=== PATIENT | female | born 1985 | race Caucasian/White ===

== ENCOUNTER 2023-04-19 06:34 | Outpatient (OUT) | payer OTHER, SELFPAY ==
[2023-04-19 07:11] LABS: Basophils Percent Auto 0.4 % (0.2-2.0); Eosinophils Absolute Auto 0.1 10^3/uL (0.0-0.7); Eosinophils Percent Auto 1.1 % (0.9-7.0); Hematocrit 42.7 % (36.0-48.0); Hemoglobin 13.6 g/dL (12.0-16.0); Immature Granulocytes Abs Auto 0.03 10^3/uL (0.00-0.03); Immature Granulocytes Pct Auto 0.3 % (0.0-0.5); Lymphocytes Absolute Auto 2.9 10^3/uL (1.2-3.8); Lymphocytes Percent Auto 31.5 % (20.5-60.0); Mean Corpuscular HGB Conc 31.9 g/dL (29.9-35.2); Mean Corpuscular Hemoglobin 27.8 pg (26.7-34.0); Mean Corpuscular Volume 87.1 fL (81.0-99.0); Mean Platelet Volume 9.4 fL (9.5-13.5); Monocytes Absolute Auto 0.6 10^3/uL (0.3-0.8); Monocytes Percent Auto 6.2 % (1.7-12.0); Neutrophils Absolute Auto 5.5 10^3/uL (1.4-6.5); Neutrophils Percent Auto 60.5 % (43.0-75.0); Platelet Count 259 10^3/uL (150-450); Red Cell Distribution Width 13.1 % (11.0-15.0); White Blood Count 9.1 10^3/uL (4.0-11.0)
[2023-04-19 08:05] LABS: Free T3 1.54 pg/mL (2.18-3.98); Thyroid Stimulating Hormone 2.066 uIU/mL (0.358-3.740)
[2023-04-19 11:55] LABS: Free T4 0.64 ng/dL (0.76-1.46)
[2023-04-20 04:07] LABS: FSH 3.8 mIU/mL (.); Luteinizing Hormone(LH) 8.9 mIU/mL (.)
[2023-04-20 15:09] LABS: Thyroglobulin Antibody <1.0 IU/mL (0.0-0.9); Thyroid Peroxidase (TPO) Ab 11 IU/mL (0-34)
[2023-04-25 04:07] LABS: Reverse T3, Serum 12.8 ng/dL (9.2-24.1)
[2023-04-26 00:07] LABS: Estrogens, Total 317 pg/mL (.)
== END 2023-04-19 06:35 | disposition home or self-care (01) ==
LOC: LAB 06:38
PROVIDERS: PCP Family Medicine; Visit Provider Family Medicine
DX: E03.9 Hypothyroidism, unspecified (principal); R53.83 Other fatigue
CPT/HCPCS: 36415; 82306; 82607; 82672; 82728; 83001; 83002; 84439; 84443; 84481; 84482; 85025; 86376; 86800

== ENCOUNTER 2024-02-02 09:32 | Outpatient (OUT) | payer OTHER, SELFPAY ==
--- OUTSIDE RECORDS SUMMARY | 2024-02-02 09:36 | XMS_ITS | CCD ---
Author Organization [facility] Care Team Providers Care Commercial Lender Name Role Phone Sarah Lau Unavailable OFELIA, DR VORA Admitting Unavailable PRINTY, DR VORA Attending Unavailable LOPEZ, DR ELY Chu Primary Care Unavailable PRINTY, DR VORA Consulting Unavailable LOPEZ, DR ELY Chu Admitting Unavailable LOPEZ, DR ELY Chu Attending Unavailable LOPEZ, DR ELY Chu Primary Care Unavailable LOPEZ, DR ELY Chu Consulting Unavailable LOPEZ, DR ELY Chu Admitting Unavailable LOPEZ, DR ELY Chu Attending Unavailable LOPEZ, DR ELY Chu Primary Care Unavailable LOPEZ, DR ELY Chu Consulting Unavailable PRINTY, DR VORA Admitting Unavailable PRINTY, DR VORA Attending Unavailable LOPEZ, DR ELY Chu Primary Care Unavailable PRINTY, DR VORA Consulting Unavailable MD Ely Lopez Primary Care Provider [phone] MD Vielka Gonzalez Attending Provider [phone] MD Vielka Gonzalez Admit Provider MD Coby Chavez Attending Provider Coby Chavez Admitting Unavailable Coby Chavez Attending Unavailable Ely Lopez Primary Care Unavailable Vielka Gnozalez Admitting Unavailable Vielka Gonzalez Attending Unavailable Ely Lopez Primary Care Unavailable Vielka Gonzalez Admitting Unavailable Vielka Gonzalez Attending Unavailable Ely Lopez Primary Care Unavailable Ely Lopez Unavailable Ely Lopez MD Primary Care Provider BRENDA DINH Attending UnavailBRENDA Dodson Attending UnavailBRENDA Dodson Attending UnavailBRENDA Dodson Attending UnavailBRENDA Dodson Attending Unavailabl BRENDA Pryor Attending BRENDA Acuna Attending Félix chu Allergies Allergy Classification Reported Allergen(s) Allergy Type Date of Onset Reaction(s) Facility (2 sources) patient allergy list reviewed by nurse or physicia Propensity to adverse reactions 9 Comment:Done [facility] Other (2 sources) Allergies Reconciled Propensity to adverse reactions Unknown [facility] Other Medications Current Medications Medication Drug Class(es) Dates Sig (Normalized) Sig (Original) Thyroid (Pork) (Skytop Thyroid) 120 mg tablet (2 sources) Start: 05-25-2023 take 1 tablet by mouth once daily Thyroid (Pork) (Skytop Thyroid) 120 mg tablet Active 120 MG PO Daily May 24, 2023 11:00pm Start: 05-25-2023 take 1 tablet by mouth once da kaitlynn Thyroid (Pork) (Skytop Thyroid) 120 mg tablet Active 120 MG PO Daily May 25, 2023 12:00am thyroid (detention) 180 mg oral tablet (10 sources) Start: 05-25-2023 End: 01-02-2024 take 1 tablet by mouth once daily Thyroid (Pork) (Skytop Thyroid) 180 mg tablet Active 180 MG PO Daily January 02, 2024 3:00pm Start: 02-24-2022 End: 05-25-2023 take 1 tablet by mouth once daily Thyroid (Pork) (Skytop Thyroid) 120 mg Tablet Discontinued 120 MG PO Daily February 24, 2022 12:00am May 25, 2023 8:12am take 1 tablet by alen every other day Skytop Thyroid 180 MG 1 tablet on an empty stomach Orally every other day for 30 days Pt will alternate the 120mg and the 180mg doses. Active Completed/Discontinued Medications Medication Drug Class(es) Dates Sig (Normalized) Sig (Original) amoxicillin 875 mg oral tablet (3 sources) Penicillin-class Antibacterial Start: 04-26-2020 take 1 tablet by mouth every twelve hours Amoxicillin 875 MG 1 tablet Orally every 12 hrs for 7 days Apr, Not-Taking/PRN azithromycin 250 mg oral tablet (2 sources) Macrolide Antimicrobial Start: 05-25-2023 End: 01-29-2024 take 2 tablets by mouth once daily, then take 1 tablet by mouth once daily Azithromycin 250 mg tablet Discontinued 250 MG PO daily 6 May 24, 2023 11:00pm January 29, 2024 3:39pm Take 2 today and then 1 each additional day for the next 4 days. docusate sodium 100 mg oral capsule (9 sources) Start: 02-26-2022 End: 05-25-2023 take 1 capsule by mouth once daily Docusate Sodium (Colace) 100 mg capsule Discontinued 100 MG PO Daily February 26, 2022 12:00am May 25, 2023 8:12am Start: 04-25-2019 End: 02-24-2022 take 1 capsule by mouth once daily Docusate Sodium (Colace) 100 mg capsule Discontinued 100 MG PO Daily April 25, 2019 12:00am February 24, 2022 6:24am ferrous sulfate 325 mg oral tablet (4 sources) Start: 02-26-2022 End: 05-25-2023 take 1 tablet by mouth once daily Ferrous Sulfate 325 mg (65 mg iron) tablet Discontinued 325 MG PO Daily February 26, 2022 12:00am May 25, 2023 8:12am ibuprofen 600 mg oral tablet (9 sources) Nonsteroidal Anti-inflammatory Drug Start: 02-26-2022 End: 05-25-2023 take 4 tablets by mouth every twenty-four hours for pain Ibuprofen 600 mg tablet Discontinued 600 MG PO Every 6 hours as needed for pain February 26, 2022 12:00am May 25, 2023 8:12am do not exceed 4 doses in a 24 hour period Start: 04-25-2019 End: 02-24-2022 take 1 tablet by mouth every six hours as needed for pain Ibuprofen 800 mg tablet Discontinued 800 MG PO Q6H as needed for pain April 25, 2019 12:00am February 24, 2022 6:24am traMADol hydrochloride 50 mg oral tablet (5 sources) Opioid Agonist Start: 04-25-2019 End: 02-24-2022 take 1 tablet by mouth every six hours as needed for pain Tramadol (Ultram) 50 mg tablet Discontinued 50 MG PO Q6H as needed for pain 8 April 25, 2019 12:00am February 24, 2022 6:24am Problems Active Problems Problem Classification Problem Date Documented Date Episodic/Chronic Anxiety disorders (6 sources) Generalized anxiety disorder; Translations: [Generalized anxiety disorder] Onset: 08-23-2022 08-23-2022 Chronic Asthma (2 sources) Asthma; Translations: [Unspecified asthma, uncomplicated] 05-25-2023 Chronic Diabetes or abnormal glucose tolerance complicating ; childbirth; or the puerperium (4 sources) Abnormal glucose complicating ; Translations: [ABNORMAL GLUCOSE COMP ] Onset: 12-16-2021 Episodic Malaise and fatigue (1 source) Other fatigue Episodic Other non-traumatic joint disorders (2 sources) Arthralgia of the ankle and/or foot; Translations: [Pain in left ankle and joints of left foot] Episodic Other nutritional; endocrine; and metabolic disorders (2 sources) Obese class I; Translations: [Body mass index 33.0-33.9, adult] Onset: 05-09-2018 Chronic Other nutritional; endocrine; and metabolic disorders (3 sources) Overweight; Translations: [Overweight (BMI 25.0-29.9)] Episodic Other nutritional; endocrine; and metabolic disorders (2 sources) Body mass index 25-29 - overweight; Translations: [Overweight] 05-25-2023 Episodic Other and delivery including normal (4 sources) Encounter for supervision of normal , unspecified, second trimester; Translations: [ENC SUP NORMAL PREG UNS SECOND TRI] Onset: 12-14-2021 Episodic Other screening for suspected conditions (not mental disorders or infectious disease) (1 source) Encounter for other specified screening; Translations: [ENCTR OTH SPEC SCREENING] Onset: 12-16-2021 Episodic Other upper respiratory infections (4 sources) Acute upper respiratory infection, unspecified; Translations: [Acute pharyngitis] Onset: 01-22-2021 Resolved: 01-22-2021 Episodic Sprains and strains (2 sources) Sprain of left ankle; Translations: [Sprain of other ligament of left ankle, subsequent encounter] Episodic Thyroid disorders (11 sources) Kirsten thyroiditis; 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 Unclassified (3 sources) CONTACT W/AND (SUSP) EXPOS COVID-19; Translations: [CONTACT W/AND (SUSP) EXPOS COVID-19] Onset: 01-01-2021 Unclassified (1 source) Maternal care for low transverse scar from previous delivery; Translations: [Maternal care for low transverse scar from previous delivery] Onset: 02-24-2022 Unclassified (1 source) Encounter for screening for Streptococcus B; Translations: [Encounter for screening for Streptococcus B] Onset: 02-09-2022 Viral infection (1 source) COVID-19; Translations: [COVID-19] Onset: 02-14-2021 Past or Other Problems Problem Classification Problem Date Documented Da te Episodic/Chronic Immunizations and screening for infectious disease (1 source) Contact with and (suspected) exposure to other viral communicable diseases Onset: 01-22-2021 Resolved: 01-22-2021 Episodic Other skin disorders (2 sources) Folliculitis; Translations: [Follicular disorder, unspecified] Onset: 12-15-2016 Episodic Other skin disorders (2 sources) Disorder of skin; Translations: [Follicular disorder, unspecified] Onset: 12-15-2016 05-25-2023 Episodic Unclassified (1 source) CONTACT W/AND (SUSP) EXPOS COVID-19; Translations: [CONTACT W/AND (SUSP) EXPOS COVID-19] Onset: 02-09-2021 Results Test Name Value Interpretation Reference Range Facility No Panel InformationOrdered By: Ene Cheney on 05-25-2023 Quick Strep (POC) [facility] No Panel Informationon 04-19 Follicle Stimulating Hormone 3.8 mIU/mL . [facility] Comment on above: Adult Female Range F ollicular phase 3.5 - 12.5 Ovulation phase 4.7 - 21.5 Luteal phase 1.7 - 7.7 Postmenopausal 25.8 - 134.8Performed at: [facility] [employer] [id number] Director: Neil Fairchild PhD, Phone: [phone] Reverse Triiodothyronine (T3) 12.8 ng/dL 9.2-24.1 [facility] Comment on above: This test was develo ped and its performance characteristicsdetermined by [employer]. It has not been cleared orapproved by the Food and Drug Administration.Performed at: [address] [id number] Director: Marina Castro MD, Phone: [phone] This test was develo ped and its performance characteristicsdetermined by [employer]. It has not been cleared orapproved by the Food and Drug Administration.Performed at: [place] [address] [id number] Director: Marina Castro MD, Phone: [phone] Serum or plasma lutropin yahir surement (units/volume)on 04-19-2023 Lutropin Qn 8.9 m[IU]/mL . [facility] Comment on above: Adult Female Range F ollicular phase 2.4 - 12.6 Ovulation phase 14.0 - 95.6 Luteal phase 1.0 - 11.4 Postmenopausal 7.7 - 58.5 TPO Ab Qnon 04-19-2023 Thyroid Peroxidase Antibodies 11 [IU]/mL 0-34 [facility] Thyroglobulin [Mass/Vol]on 0 04-19-2023 Thyroglobulin Level <1.0 [IU]/mL 0.0-0.9 [facility] Comment on above: Thyroglobulin Antibo dy measured by Fiorella CoulterMethodologyPerformed at: [employer] [address] [id number] Director: Neil Fairchild PhD, Phone: [phone] Thyroglobulin Antibo dy measured by PixonicMethodologyPerformed at: [employer] [id number] Director: Neil Fairchild PhD, Phone: [phone] Total estrogen measurementon 04-19-2023 Estrogen [Mass/Vol] 317 pg/mL . [facility] Comment on above: Prepubertal < 40 Fem minerva Cycle: 1-10 Days 16 - 328 11-20 Days 34 - 501 21-30 Days 48 - 350 Post-Menopausal 40 - 244Performed at: [place] [address] [id number] Director: Marina Castro MD, Phone: [phone] Antibody Identificationon Antibody Identification LC Normal [facility] Comment on above: Result Comment: Anti -c by previous ID at [facility]. See scanned report. Anti-c confirmed by [facility] blood bank upon additional testing on 02/25/22. Unable to rule out Anti-E and Anti-S. Give c, E, S negative packed red blood cells if transfusion is necessary. Pasquale observed during testing. --- 02/26/22 0938 --- AB ID previously reported as: Cold Ab, Anti-c Anti-c by previous ID at [facility]. See scanned report. [facility] Basophils Auto (Bld) [#/Vol] Ordered By: VIELKA GONZALEZ on 02-25-2022 Basophils (Bld) [#/Vol] 0.0 10*3/uL 0.0-0.2 [facility] Basophils/100 WBC Auto (Bld) Ordered By: VIELKA GONZALEZ on 02-25-2022 Basophils/100 WBC (Bld) 0.1 % . [facility] Complete Blood Count Auto Di ffon 02-25-2022 Basophils (Bld) [#/Vol] 0.0 10*3/uL Normal 0.0-0.2 [facility] Comment on above: Order Comment: DRAW LABS AFTER MORNING RUN IS COMPLETE Result Comment: PERF ORMED BY: [place] [address] PATHOLOGIST SENIOR ARCHITECT ROSS NGUYEN M.D. Performed By: #### C BC #### [address] Basophils/100 WBC (Bld) 0.1 % Normal . [facility] Comment on above: Order Comment: DRAW LABS AFTER MORNING RUN IS COMPLETE Performed By: #### C BC #### [facility] [address] Eosinophils (Bld) [#/Vol] 0.0 10*3/uL Normal 0.0-0.45 [facility] Comment on above: Order Comment: DRAW LABS AFTER MORNING RUN IS COMPLETE Performed By: #### C BC #### [address] Eosinophils/100 WBC (Bld) 0.2 % Normal . [facility] Comment on above: Order Comment: DRAW LABS AFTER MORNING RUN IS COMPLETE Performed By: #### C BC #### [address] Erythrocyte distribution width (RBC) [Ratio] 14.7 % Normal 11.9-15.3 [facility] Comment on above: Order Comment: DRAW LABS AFTER MORNING RUN IS COMPLETE Performed By: #### C BC #### [address] Hematocrit (Bld) [Volume fraction] 28.5 % Low 34.0-46.4 [facility] Comment on above: Order Comment: DRAW LABS AFTER MORNING RUN IS COMPLETE Performed By: #### C BC #### [address] Hemoglobin (Bld) [Mass/Vol] 9.6 g/dL Low 11.8-15.4 [facility] Comment on above: Order Comment: DRAW LABS AFTER MORNING RUN IS COMPLETE Performed By: #### C BC #### [address] Lymphocytes (Bld) [#/Vol] 2.2 10*3/uL Normal 1.00-4.8 [facility] Comment on above: Order Comment: DRAW LABS AFTER MORNING RUN IS COMPLETE Performed By: #### C BC #### [address] Lymphocytes/100 WBC (Bld) 18.6 % Normal . [facility] Comment on above: Order Comment: DRAW LABS AFTER MORNING RUN IS COMPLETE Performed By: #### C BC #### [address] MCH (RBC) [Entitic mass] 28.1 pg Normal 24.7-34.3 [facility] Comment on above: Order Comment: DRAW LABS AFTER MORNING RUN IS COMPLETE Performed By: #### C BC #### [address] MCV (RBC) [Entitic vol] 83.5 fL Normal 80-100 [facility] Comment on above: Order Comment: DRAW LABS AFTER MORNING RUN IS COMPLETE Performed By: #### C BC #### [address] Mean Corpuscular HGB Conc 33.6 g/dL Normal 32.0-35.0 [facility] Comment on above: Order Comment: DRAW LABS AFTER MORNING RUN IS COMPLETE Performed By: #### C BC #### [facility] [address] Monocytes (Bld) [#/Vol] 0.8 10*3/uL Normal 0.0-0.8 [facility] Comment on above: Order Comment: DRAW LABS AFTER MORNING RUN IS COMPLETE Performed By: #### C BC #### [facility] [address] Monocytes/100 WBC (Bld) 6.9 % Normal . [facility] Comment on above: Order Comment: DRAW LABS AFTER MORNING RUN IS COMPLETE Performed By: #### C BC #### [facility] [address] Neutrophils (Bld) [#/Vol] 8.7 10*3/uL High 1.8-7.7 [facility] Comment on above: Order Comment: DRAW LABS AFTER MORNING RUN IS COMPLETE Performed By: #### C BC #### [facility] [address] Neutrophils/100 WBC (Bld) 74.2 % Normal . [facility] Comment on above: Order Comment: DRAW LABS AFTER MORNING RUN IS COMPLETE Performed By: #### C BC #### [facility] [address] NRBC% 0.2 /100{WBC} Normal 0-0.5 [facility] Comment on above: Order Comment: DRAW LABS AFTER MORNING RUN IS COMPLETE Performed By: #### C BC #### [facility] [address] Platelet mean volume (Bld) [Entitic vol] 8.5 fL Normal 6.3-10.7 [facility] Comment on above: Order Comment: DRAW LABS AFTER MORNING RUN IS COMPLETE Performed By: #### C BC #### [facility] [address] [place] [address] [place] Platelets (Bld) [#/Vol] 163 10*3/uL Normal 150-450 [facility] Comment on above: Order Comment: DRAW LABS AFTER MORNING RUN IS COMPLETE Performed By: #### C BC #### [facility] [address] RBC (Bld) [#/Vol] 3.42 10*6/uL Low 3.60-5.00 [facility] Comment on above: Order Comment: DRAW LABS AFTER MORNING RUN IS COMPLETE Performed By: #### C BC #### [facility] [address] WBC (Bld) [#/Vol] 11.7 10*3/uL High 3.8-11.6 [facility] Comment on above: Order Comment: DRAW LABS AFTER MORNING RUN IS COMPLETE Performed By: #### C BC #### [address] Eosinophils Auto (Bld) [#/Vo l]Ordered By: VIELKA GONZALEZ on 02-25-2022 Eosinophils (Bld) [#/Vol] 0.0 10*3/uL 0.0-0.45 [facility] Eosinophils/100 WBC Auto (Bl d)Ordered By: VIELKA GONZALEZ on 02-25-2022 Eosinophils/100 WBC (Bld) 0.2 % . [facility] Erythrocyte distribution wid th Auto (RBC) [Ratio]Ordered By: VIELKA GONZALEZ on 02-25-2022 Erythrocyte distribution width (RBC) [Ratio] 14.7 % 11.9-15.3 [facility] Hematocrit Auto (Bld) [Volum e fraction]Ordered By: VIELKA GONZALEZ on 02-25-2022 Hematocrit (Bld) [Volume fraction] 28.5 % 34.0-46.4 [facility] Hemoglobin [Mass/volume] in BloodOrdered By: VIELKA GONZALEZ on 02-25-2022 Hemoglobin (Bld) [Mass/Vol] 9.6 g/dL 11.8-15.4 [facility] Leukocytes [#/volume] correc sabrina for nucleated erythrocytes in Blood by Automated counOrdered By: VIELKA GONZALEZ on 02-25-2022 WBC corrected for nucl RBC Auto (Bld) [#/Vol] 11.7 10*3/uL 3.8-11.6 [facility] Lymphocytes Auto (Bld) [#/Vo l]Ordered By: VIELKA GONZALEZ on 02-25-2022 Lymphocytes (Bld) [#/Vol] 2.2 10*3/uL 1.00-4.8 [facility] Lymphocytes/100 WBC Auto (Bl d)Ordered By: VIELKA GONZALEZ on 02-25-2022 Lymphocytes/100 WBC (Bld) 18.6 % . [facility] MCH Auto (RBC) [Entitic mass ]Ordered By: VIELKA GONZALEZ on 02-25-2022 MCH (RBC) [Entitic mass] 28.1 pg 24.7-34.3 [facility] MCHC Auto (RBC) [Mass/Vol]Or dered By: VIELKA GONZALEZ on 02-25-2022 MCHC (RBC) [Mass/Vol] 33.6 g/dL 32.0-35.0 [facility] MCV Auto (RBC) [Entitic vol] Ordered By: VIELKA GONZALEZ on 02-25-2022 MCV (RBC) [Entitic vol] 83.5 fL 80-100 [facility] Monocytes Auto (Bld) [#/Vol] Ordered By: VIELKA GONZALEZ on 02-25-2022 Monocytes (Bld) [#/Vol] 0.8 10*3/uL 0.0-0.8 [facility] Monocytes/100 WBC Auto (Bld) Ordered By: VIELKA GONZALEZ on 02-25-2022 Monocytes/100 WBC (Bld) 6.9 % . [facility] Neutrophils Auto (Bld) [#/Vo l]Ordered By: VIELKA GONZALEZ on 02-25-2022 Neutrophils (Bld) [#/Vol] 8.7 10*3/uL 1.8-7.7 [facility] Neutrophils/100 WBC Auto (Bl d)Ordered By: VIELKA GONZALEZ on 02-25-2022 Neutrophils/100 WBC (Bld) 74.2 % . [facility] Nucleated erythrocytes [Pres ence] in Blood by Automated countOrdered By: VIELKA GONZALEZ on 02-25-2022 Nucleated RBC Auto Ql (Bld) 0.2 /100{WBC} 0-0.5 [facility] Platelet mean volume Auto (B ld) [Entitic vol]Ordered By: VIELKA GONZALEZ on 02-25-2022 Platelet mean volume (Bld) [Entitic vol] 8.5 fL 6.3-10.7 [facility] Platelets Auto (Bld) [#/Vol] Ordered By: VIELKA GONZALEZ on 02-25-2022 Platelets (Bld) [#/Vol] 163 10*3/uL 150-450 [facility] RBC Auto (Bld) [#/Vol]Ordere d By: VIELKA GONZALEZ on 02-25-2022 RBC (Bld) [#/Vol] 3.42 10*6/uL 3.60-5.00 [facility] WBC Auto (Bld) [#/Vol]Ordere d By: VIELKA GONZALEZ on 02-25-2022 WBC (Bld) [#/Vol] 11.7 10*3/uL 3.8-11.6 [facility] Amphetamine Screen Ql (U)Ord ered By: VIELKA GONZALEZ on 02-24-2022 Amphetamines Ql (U) Negative Negative [facility] Automated erythrocytes count in urine sediment (number/area)Ordered By: VIELKA GONZALEZ on 02-24-2022 RBC Auto (Urine sed) [#/Area] 0-1 [HPF] 0-4 [facility] Automated leukocytes count i n urine sediment (number/area)Ordered By: VIELKA GONZALEZ on 02-24-2022 WBC Auto (Urine sed) [#/Area] 0-1 [HPF] 0-4 [facility] Barbiturates [Presence] in U rineOrdered By: VIELKA GONZALEZ on 02-24-2022 Barbiturates Ql (U) Negative Negative [facility] Benzodiazepines [Presence] i n UrineOrdered By: VIELKA GONZALEZ on 02-24-2022 Benzodiazepines Ql (U) Negative Negative [facility] Bilirubin Test strip Ql (U)O rdered By: VIELKA GONZALEZ on 02-24-2022 Bilirubin Ql (U) Negative Negative [facility] Blood Bank Pathologist Destinee dietrich 02-24-2022 Blood Bank Pathologist Review Sent to Pathology Normal [facility] Comment on above: Result Comment: PERF ORMED BY: [place] [address] PATHOLOGIST SENIOR ARCHITECT ROSS NGUYEN M.D. Color Auto (U)Ordered By: EDISON GONZALEZ on 02-24-2022 Color (U) Yellow Yellow [facility] Complete Blood Count Auto Di ffon 02-24-2022 Basophils (Bld) [#/Vol] 0.0 10*3/uL Normal 0.0-0.2 [facility] Comment on above: Result Comment: PERF ORMED BY: [address] [place] [address] PATHOLOGIST SENIOR ARCHITECT ROSS NGUYEN M.D. Performed By: #### C BC #### [address] Basophils/100 WBC (Bld) 0.3 % Normal . [facility] Comment on above: Performed By: #### C BC #### [address] Eosinophils (Bld) [#/Vol] 0.0 10*3/uL Normal 0.0-0.45 [facility] Comment on above: Performed By: #### C BC #### [address] Eosinophils/100 WBC (Bld) 0.2 % Normal . [facility] Comment on above: Performed By: #### C BC #### [address] Erythrocyte distribution width (RBC) [Ratio] 14.5 % Normal 11.9-15.3 [facility] Comment on above: Performed By: #### C BC #### [address] Hematocrit (Bld) [Volume fraction] 34.7 % Normal 34.0-46.4 [facility] Comment on above: Performed By: #### C BC #### [address] [place] [address] [place] Hemoglobin (Bld) [Mass/Vol] 11.3 g/dL Low 11.8-15.4 [facility] Comment on above: Performed By: #### C BC #### [address] Lymphocytes (Bld) [#/Vol] 1.9 10*3/uL Normal 1.00-4.8 [facility] Comment on above: Performed By: #### C BC #### [address] Lymphocytes/100 WBC (Bld) 15.2 % Normal . [facility] Comment on above: Performed By: #### C BC #### [address] MCH (RBC) [Entitic mass] 27.3 pg Normal 24.7-34.3 [facility] Comment on above: Performed By: #### C BC #### [address] MCV (RBC) [Entitic vol] 83.7 fL Normal 80-100 [facility] Comment on above: Performed By: #### C BC #### [address] Mean Corpuscular HGB Conc 32.6 g/dL Normal 32.0-35.0 [facility] Comment on above: Performed By: #### C BC #### [address] Monocytes (Bld) [#/Vol] 0.7 10*3/uL Normal 0.0-0.8 [facility] Comment on above: Performed By: #### C BC #### [address] Monocytes/100 WBC (Bld) 5.2 % Normal . [facility] Comment on above: Performed By: #### C BC #### [address] Neutrophils (Bld) [#/Vol] 10.0 10*3/uL High 1.8-7.7 [facility] Comment on above: Performed By: #### C BC #### [facility] [address] Neutrophils/100 WBC (Bld) 79.1 % Normal . [facility] Comment on above: Performed By: #### C BC #### [facility] [address] NRBC% 0.1 /100{WBC} Normal 0-0.5 [facility] Comment on above: Performed By: #### C BC #### [facility] [address] Platelet mean volume (Bld) [Entitic vol] 8.2 fL Normal 6.3-10.7 [facility] Comment on above: Performed By: #### C BC #### [facility] [address] Platelets (Bld) [#/Vol] 174 10*3/uL Normal 150-450 [facility] Comment on above: Performed By: #### C BC #### [facility] [address] RBC (Bld) [#/Vol] 4.15 10*6/uL Normal 3.60-5.00 [facility] Comment on above: Performed By: #### C BC #### [facility] [address] WBC (Bld) [#/Vol] 12.7 10*3/uL High 3.8-11.6 [facility] Comment on above: Performed By: #### C BC #### [facility] [address] [place] [address] [place] Dipstick and Microscopicon 1 04-27-2021 Appearance (U) Clear Normal Clear [facility] Comment on above: Order Comment: Name Collection Type:: Clean-Voided Midstream Performed By: #### C USTB #### [address] Bacteria,Urine None Seen Normal None Seen [facility] Comment on above: Order Comment: Name Collection Type:: Clean-Voided Midstream Performed By: #### C USTB #### [facility] [address] [place] [address] [place] Bilirubin,Urine Negative Normal Negative [facility] Comment on above: Order Comment: Name Collection Type:: Clean-Voided Midstream Performed By: #### C USTB #### [facility] [address] [place] [address] [place] Color (U) Yellow Normal Yellow [facility] Comment on above: Order Comment: Name Collection Type:: Clean-Voided Midstream Performed By: #### C USTB #### [facility] [address] [place] [address] Glucose Ql (U) Normal Normal Normal [facility] Comment on above: Order Comment: Name Collection Type:: Clean-Voided Midstream Performed By: #### C USTB #### [facility] [address] [place] [address] [place] Hyaline Casts,Urine 0-8 Normal 0-8 [facility] Comment on above: Order Comment: Name Collection Type:: Clean-Voided Midstream Result Comment: PERF ORMED BY: [place] [address] PATHOLOGIST SENIOR ARCHITECT ROSS NGUYEN M.D. Performed By: #### C USTB #### [facility] [address] [place] [address] Ketones Ql (U) Negative Normal Negative [facility] Comment on above: Order Comment: Name Collection Type:: Clean-Voided Midstream Performed By: #### C USTB #### [facility] [address] [place] [address] [place] Leukocyte esterase Test strip Ql (U) 1+ High Negative [facility] Comment on above: Order Comment: Name Collection Type:: Clean-Voided Midstream Performed By: #### C USTB #### [facility] [address] [place] [address] Nitrite,Urine Negative Normal Negative [facility] Comment on above: Order Comment: Name Collection Type:: Clean-Voided Midstream Performed By: #### C USTB #### [address] Occult Blood,Urine Negative Normal Negative [facility] Comment on above: Order Comment: Name Collection Type:: Clean-Voided Midstream Result Comment: PERF ORMED BY: [place] [address] PATHOLOGIST SENIOR ARCHITECT ROSS NGUYEN M.D. Performed By: #### C USTB #### [address] pH (U) 7.0 [pH] Normal 5.0-9.0 [facility] Comment on above: Order Comment: Name Collection Type:: Clean-Voided Midstream Performed By: #### C USTB #### [address] Protein,Urine Negative Normal Negative [facility] Comment on above: Order Comment: Name Collection Type:: Clean-Voided Midstream Performed By: #### C USTB #### [address] RBC LM.HPF (Urine sed) [#/Area] 0 /[HPF] Normal 0-4 [facility] Comment on above: Order Comment: Name Collection Type:: Clean-Voided Midstream Performed By: #### C USTB #### [address] Specificy [place],Urine 1.013 Normal 1.001-1.03 0 [facility] Comment on above: Order Comment: Name Collection Type:: Clean-Voided Midstream Performed By: #### C USTB #### [place] [address] [place] Squamous Epithelial Cell,Urine 0-1 Normal 0-2 [facility] Comment on above: Order Comment: Name Collection Type:: Clean-Voided Midstream Performed By: #### C USTB #### [address] Urobilinogen,Urine Normal Normal Normal [facility] Comment on above: Order Comment: Name Collection Type:: Clean-Voided Midstream Performed By: #### C USTB #### [facility] [address] WBC LM.HPF (Urine sed) [#/Area] 0 /[HPF] Normal 0-4 [facility] Comment on above: Order Comment: Name Collection Type:: Clean-Voided Midstream Performed By: #### C USTB #### [facility] [address] [place] [address] Direct [place] 02-24-2022 Polyspecific AHG Negative Normal [facility] Comment on above: Result Comment: PERF ORMED BY: [place] [address] PATHOLOGIST SENIOR ARCHITECT ROSS NGUYEN M.D. Ketones Auto test strip (U) [Mass/Vol]Ordered By: VIELKA GONZALEZ on 02-24-2022 Ketones (U) [Mass/Vol] Negative Negative [facility] Abdulaziz 02-24-2022 L -------- -------- Specimen: [id number] Received: 02/26/22 Status: CORETTA Juares Num: [id number] Spec Type: Impression Subm Dr: VIELKA GONZALEZ MD Tissues: PATHBBK Procedures: PATHREVIEW -------- Age/ Patient Sex Location Account Attending Physician -------- Tabatha Go 36/F 3S [id number] VEILKA GONZALEZ MD -------- SPEC NUM: [id number] RECD: 02/26/22 STATUS: CORETTA JUARES NUM: [id number] DEMI: 02/24/22- SUBM DR: VIELKA GONZALEZ MD ENTERED: 02/26/[address] [facility] DR: SPEC TYPE: Impression DEPT: ME ORDERED: PATHRECaliber Data [facility] Results Date Time Test Result Flag (u) Normal Range 02/24/22 07 Ab Screen POSITIVE AB ID 02/24/22700 Cold Ab, Anti-c Anti-c by previous ID at [facility]. See scanned report. Anti-c confirmed by [facility] blood bank upon additional testing on 02/25/22. Unable to rule out Anti-E and Anti-S. Give c, E, S negative packed red blood cells if transfusion is necessary. Pasquale observed during testing. --- 02/26/22 0938 --- AB ID previously reported as: Cold Ab, Anti-c Anti-c by previous ID at [facility]. See scanned report. [facility] Pathologist Review Anti-c is present in the serum, as seen with previous immunization by transfusion or . It is associated with hemolytic disease of the and transfusion reactions. Cannot rule out Anti-E and Anti-S. Give c, E, and S negative packed red blood cells if transfusion is necessary. -------- -------- Specimen: [id number] Received: 02/26/22 Status: CORETTA Catalanwoody Num: [id number] Spec Type: Impression Subm Dr: VIELKA GONZALEZ MD Tissues: PATHLA NENA Procedures: PATHREVIEW -------- Patient: Tabatha Go [id number] (Continued) -------- Signed (signature on file) Arya Chandler MD 02/27/22 1221 [facility] - Drug toxicology Ordered By: VIELKA GONZALEZ on 02-24-2022 Opiates Ql (U) Negative Negative [facility] - UrinalysisOrder ed By: VIELKA GONZALEZ on 02-24-2022 Hyaline casts LM Ql (Urine sed) 0-8 [LPF] 0-8 [facility] Nitrite Test strip Ql (U)Ord ered By: VIELKA GONZALEZ on 02-24-2022 Nitrite Ql (U) Negative Negative [facility] OB Urine Drug Screen (NO THC )on 02-24-2022 Amphetamine Screen,Urine Negative Normal Negative [facility] Comment on above: Performed By: #### R ME W RFX #### [facility] , #### OBUDS #### [facility] [address] [place] [address] [place] Barbiturate Screen,Urine Negative Normal Negative [facility] Comment on above: Performed By: #### R ME W RFX #### [facility] , #### OBUDS #### [facility] [address] [place] [address] [place] Benzodiazepines Screen,Urine Negative Normal Negative [facility] Comment on above: Performed By: #### R ME W RFX #### [facility] , #### OBUDS #### [facility] [address] [place] [address] [place] Cocaine Screen,Urine Negative Normal Negative [facility] Comment on above: Performed By: #### R ME W RFX #### [facility] , #### OBUDS #### [facility] [address] [place] [address] [place] Opiate Screen,Urine Negative Normal Negative [facility] Comment on above: Performed By: #### R ME W RFX #### [facility] , #### OBUDS #### [facility] [address] [place] [address] [place] Phencyclidine Screen, Urine Negative Normal Negative [facility] Comment on above: Result Comment: Thes e are unconfirmed results and should not be used for legal purposes. Drug Cut-Off Concentration: AMPH 1000 ng/mL ISABEL 200 ng/mL JASON 200 ng/mL COCM 300 ng/mL OP 300 ng/mL PCP 25 ng/mL PERFORMED BY: [place] [address] PATHOLOGIST SENIOR ARCHITECT ROSS NGUYEN M.D. Performed By: #### R ME W RFX #### [facility] , #### OBUDS #### [address] Phencyclidine Screen Ql (U)O rdered By: VIELKA GONZALEZ on 02-24-2022 Phencyclidine Ql (U) Negative Negative [facility] Comment on above: These are unconfirme d results and should not be used for legal purposes. Drug Cut-Off Concentration: AMPH 1000 ng/mL ISABEL 200 ng/mL JASON 200 ng/mL COCM 300 ng/mL OP 300 ng/mL PCP 25 ng/mL Protein Auto test strip (U) [Mass/Vol]Ordered By: VIELKA GONZALEZ on 02-24-2022 Protein (U) [Mass/Vol] Negative Negative [facility] RPR w/rfx to Quant TP Abson 02-24-2022 RPR, Rfx Quant RPR Non-Reactive Normal Non Reactive [facility] Comment on above: Result Comment: Perf ormed at: - [facility] [address] [id number] Conveyor Belt Operator: Neil Fairchild PhD, Phone: [phone] PERFORMED BY: [place] [address] PATHOLOGIST SENIOR ARCHITECT ROSS NGUYEN M.D. Performed By: #### R ME W RFX #### [facility] , #### OBUDS #### [facility] [address] [place], [place] [id number] [facility] Reagin Ab [Presence] in Seru m by RPROrdered By: VIELKA GONZALEZ on 02-24-2022 Reagin Ab RPR Ql (S) Non-Reactive Non Reactive [facility] Comment on above: Performed at: [address] [id number] Director: Neil Fairchild PhD, Phone: [phone] Specific gravity Auto test s trip (U) [Rel density]Ordered By: VIELKA GONZALEZ on 02-24-2022 Specific gravity (U) [Rel density] 1.013 1.001-1.03 0 [facility] Squamous epithelial cells de tection in urine sediment by light microscopyOrdered By: VIELKA GONZALEZ on 02-24-2022 Epithelial cells.squamous LM Ql (Urine sed) 0-1 [HPF] 0-2 [facility] Type and Screenon 02-24-2022 ABO and Rh group Nom (Bld) Blood group A Rh(D) positive Normal [facility] Comment on above: Result Comment: PERF ORMED BY: [facility] [address] [place] [address] PATHOLOGIST SENIOR ARCHITECT ROSS NGUYEN M.D. Urine bacteria detection by automated methodOrdered By: VIELKA GONZALEZ on 02-24-2022 Bacteria Auto Ql (U) None seen None Seen [facility] Urine clarity by refractomet ry automatedOrdered By: VIELKA GONZALEZ on 02-24-2022 Clarity Refractometry automated (U) Clear Clear [facility] Urine cocaine detectionOrder ed By: VIELKA GONZALEZ on 02-24-2022 Cocaine Ql (U) Negative Negative [facility] Urine glucose measurement by automated test strip (mass/volume)Ordered By: VIELKA GONZALEZ on 02-24-2022 Glucose Auto test strip (U) [Mass/Vol] Normal mg/dL Normal [facility] Urine hemoglobin detection b y automated test stripOrdered By: VIELKA GONZALEZ on 02-24-2022 Hemoglobin Auto test strip Ql (U) Negative Negative [facility] Urine leukocyte esterase det ection by automated test stripOrdered By: VIELKA GONZALEZ on 02-24-2022 Leukocyte esterase Auto test strip Ql (U) 1+ Negative [facility] Urobilinogen Auto test strip (U) [Mass/Vol]Ordered By: VIELKA GONZALEZ on 02-24-2022 Urobilinogen (U) [Mass/Vol] Normal mg/dL Normal [facility] pH Auto test strip (U)Ordere d By: VIELKA GONZALEZ on 02-24-2022 pH (U) 7.0 [pH] 5.0-9.0 [facility] S. agalactiae Org specific c x Ql (Unsp spec)Ordered By: VIELKA GONZALEZ on 02-13-2022 Streptococcus agalactiae culture No Group B Beta Streptococcus Isolated 3 Days [facility] Strep B Cultureon 02-09-2022 Strep B Culture Reason for Exam 36 w eeks gestation of ; screening for stre Vaginal/Rectal No Group B Beta Streptococcus Isolated 3 Days PERFORMED BY: [facility] [address] [place] [address] PATHOLOGIST SENIOR ARCHITECT ROSS NGUYEN M.D. Normal [facility] Comment on above: Performed By: #### C USTB #### [facility] [address] GTT 3 HR PREGon 12-16-2021 Glucose [Mass/Vol] 97 mg/dL Normal 74-106 [facility] Comment on above: Performed By: #### G TT3P #### [facility] [address] [address] [address] Cristal Waterman Glucose [Mass/Vol] 173 mg/dL Normal [facility] Comment on above: Performed By: #### G TT3P #### [facility] [address] [address] [address] Cristal Waterman Glucose [Mass/Vol] 139 mg/dL Normal [facility] Comment on above: Performed By: #### G TT3P #### [facility] [address] [address] [address] Cristal Waterman Glucose [Mass/Vol] 98 mg/dL Normal [facility] Comment on above: Performed By: #### G TT3P #### [facility] [address] [address] [address] Cristal Waterman GLUCOSE - 1HRon 12-14-2021 Glucose [Mass/Vol] 145 mg/dL Critically high 74-106 [facility] Comment on above: Performed By: #### G LU1HR #### [facility] [address] [place] [address] Dr. Cristal Waterman HEMOGLOBIN AND HEMATOCRITon 12-14-2021 Hematocrit (Bld) [Volume fraction] 35.3 % Critically low 36.0-48.0 [facility] Comment on above: Performed By: #### H GBHCT #### [facility] [address] [place], [place] [address] Dr. Cristal Waterman Hemoglobin (Bld) [Mass/Vol] 11.6 g/dL Critically low 12.0-16.0 [facility] Comment on above: Performed By: #### H GBHCT #### [facility] [address] [place] [address] Dr. Cristal Waterman Covid-19 PCR (CVDTBH)on SARS-CoV-2 (COVID-19) RNA EMILY+probe Ql (Unsp spec) Detected Critically abnormal NOT DETECTED [facility] Comment on above: Result Comment: This test is not yet approved or cleared by the [place] FDA. When there are no FDA-approved or cleared tests available, and other criteria are met, FDA can make tests available under an emergency access mechanism called an Emergency Use Authorization (EUA). The EUA for this test is supported by the [place] of Health and Human Service's (HHS's) declaration that circumstances exist to justify the emergency use of in vitro diagnostics for the detection and/or diagnosis of the virus that causes COVID-19. This EUA will remain in effect (meaning this test can be used) for the duration of the COVID-19 declaration justifying emergency of IVDs, unless it is terminated or revoked by FDA (after which the test may no longer be used). Performed By: #### C VDTBH #### [facility] [address] [place] [address] Dr. Cristal Waterman COVID Quick Testingon 2020 Result Negative [facility] Other Covid-19 PCR (CVDTBH)on 12-10 SARS-CoV-2 (COVID-19) RNA EMILY+probe Ql (Unsp spec) Not detected Normal NOT DETECTED [facility] Comment on above: Result Comment: This test is not yet approved or cleared by the [place] FDA. When there are no FDA-approved or cleared tests available, and other criteria are met, FDA can make tests available under an emergency access mechanism called an Emergency Use Authorization (EUA). The EUA for this test is supported by the [place] of Health and Human Service's (HHS's) declaration that circumstances exist to justify the emergency use of in vitro diagnostics for the detection and/or diagnosis of the virus that causes COVID-19. This EUA will remain in effect (meaning this test can be used) for the duration of the COVID-19 declaration justifying emergency of IVDs, unless it is terminated or revoked by FDA (after which the test may no longer be used). When diagnostic testing is negative, the possibility of a false negative should be considered in the context of a patient's recent exposures and the presence of clinical signs and symptoms consistent with SARS-CoV-2. Performed By: #### C [facility] #### [facility] [address] [place] [address] Dr. Cristal Waterman Vital Signs Date Time Vital Sign Value Performing Clinician Facility 01-29-2024 15:290500 Body height 167.64 cm [facility] 01-29-2024 15:29-0500 Body mass index (BMI) [Ratio] 31.4 kg/m2 [facility] 01-29-2024 15:290500 Body weight 88.45 kg [facility] 01-29-2024 15:29-0500 Diastolic blood pressure 82 mm[Hg] [facility] 01-29-2024 15:29-0500 Heart rate 83 /min [facility] 01-29-2024 15:29-0500 Systolic blood pressure 118 mm[Hg] [facility] 05-25-2023 10:[id number] Body height 167.64 cm [facility] 05-25-2023 10:0400 Body mass index (BMI) [Ratio] 33.4 kg/m2 [facility] 05-25-2023 10:040 Body weight 93.89 kg [facility] 05-25-2023 10:28-0400 Diastolic blood pressure 72 mm[Hg] [facility] 05-25-2023 10:28-0400 Heart rate 96 /min [facility] 05-25-2023 10:28-0400 SaO2% (BldA) [Mass fraction] 98 % [facility] 05-25-2023 10:28-0400 Systolic blood pressure 128 mm[Hg] [facility] 04-13-2023 13:15-0500 Body height 167.64 cm Ely Lopez Other [facility] 04-13-2023 13:15-0500 Body mass index (BMI) [Ratio] 33 kg/m2 Ely Lopez Other [facility] Other 04-13-2023 13:15-0500 Body weight 92.76 kg Ely Lopez Other [facility] Other 04-13-2023 13:15-0500 Body weight 92.75 kg [facility] 04-13-2023 13:15-0500 Diastolic blood pressure 87 mm[Hg] Ely Lopez Other [facility] 04-13-2023 13:15-0500 Systolic blood pressure 126 mm[Hg] Ely Lopez Other [facility] 02-26-2022 08:00-0500 Body temperature 97.9 [degF] MD Ely Lopez Work Phone: [facility] 02-26-2022 08:00-0500 Diastolic blood pressure 84 mm[Hg] MD Ely Lopez Work Phone: [facility] 02-26-2022 08:00-0500 Heart rate 77 /min MD Ely Lopez Work Phone: [facility] 02-26-2022 08:00-0500 Respiratory rate 16 /min MD Ely Lopez Work Phone: [facility] 02-26-2022 08:00-0500 SaO2% (BldA) [Mass fraction] 96 % MD Ely Lopez Work Phone: [facility] 02-26-2022 08:00-0500 Systolic blood pressure 125 mm[Hg] MD Ely Lopez Work Phone: [facility] 02-24-2022 06:25-0500 Body height 167.64 cm MD Ely Lopez Work Phone: [facility] 02-24-2022 06:04-0500 Body weight 98.88 kg MD Ely Lopez Work Phone: [facility] 01-22-2021 14:30-0500 Body height 167.64 cm Sarah Judi Other [facility] Other 01-22-2021 14:30-0500 Body mass index (BMI) [Ratio] 32.28 kg/m2 Sarah Yousifmond Other [facility] Other 01-22-2021 14:30-0500 Body temperature 97.2 [degF] Sarah Yousifmond Other [facility] Other 01-22-2021 14:30-0500 Body weight 90.72 kg Sarah Yousifmond Other [facility] Other 01-22-2021 14:30-0500 Respiratory rate 18 /min Sarah Yousifmond Other [facility] Other 01-22-2021 14:30-0500 SaO2% (BldA) [Mass fraction] 97 % Sarah Judi Other [facility] Other Encounters Encounter Date Encounter Type Care Provider Facility Start: 01-29-2024 End: 01-29-2024 ambulatory [facility] Work Phone: Start: 01-29-2024 End: 01-29-2024 Patient encounter procedure [facility] Work Phone: Start: 01-25-2024 Non-patient / Non-visit [facility] Work Phone: Start: 12-27-2023 End: 12-27-2023 Clinical Support Brenda Penny Fabrizio [facility] Work Phone: [facility] Comment on above: Generalized anxiety disorder (CMS/HCC) Start: 12-27-2023 End: 12-27-2023 Bamboo flowsheet Brenda K Fabrizio [facility] Work Phone: [facility] Start: 12-27-2023 End: 12-27-2023 Bamboo flowsheet Brenda K Fabrizio [facility] Work Phone: [facility] Start: 11-28-2023 End: 11-29-2023 ambulatory BRENDA K FABRIZIO Not Available Start: 10-24-2023 End: 10-25-2023 ambulatory BRENDA K FABRIZIO Not Available Start: 09-20-2023 End: 09-20-2023 ambulatory BRENDA K FABRIZIO Not Available Start: 08-14-2023 End: 08-14-2023 ambulatory BRENDA K FABRIZIO Not Available Start: 05-25-2023 End: 05-25-2023 ambulatory [facility] Work Phone: Start: 05-25-2023 End: 05-25-2023 Patient encounter procedure [facility] Work Phone: Start: 05-09-2023 End: 05-09-2023 ambulatory BRENDA K FABRIZIO Not Available Start: 04-20-2023 End: 04-20-2023 ambulatory Ely Lopez Other [facility] Other Start: 04-20-2023 Telephone encounter Ely Lopez [facility] Start: 04-19-2023 Non-patient / Non-visit [facility] Work Phone: Start: 04-18-2023 End: 04-18-2023 Chart abstracting Brenda Dinh [facility] Work Phone: [facility] Comment on above: Generalized anxiety disorder (CMS/HCC) Start: 04-18-2023 End: 04-18-2023 ambulatory BRENDA DINH Not Available Start: 04-13-2023 End: 04-13-2023 ambulatory Ely Lopez Other [facility] Other Start: 04-13-2023 Office outpatient vi sit 15 minutes Ely Lopez [facility] Start: 04-13-2023 End: 04-13-2023 Patient encounter procedure [facility]- Start: 02-28-2022 End: 02-28-2022 ambulatory Coby Chavez Facility:[facility] Start: 02-28-2022 End: 02-28-2022 ambulatory MD Ely Lopez Work Phone: [facility] Work Phone: Start: 02-28-2022 End: 02-28-2022 Patient encounter procedure MD Ely Lopez Work Phone: [facility]- Visit Start: 02-24-2022 End: 02-26-2022 Evaluation and management of inpatient Vielka Printy Facility:[facility] Start: 02-24-2022 End: 02-26-2022 Evaluation and management of inpatient MD Ely Lopez Work Phone: [facility] [address] Start: 02-09-2022 End: 02-09-2022 ambulatory Vielka Printy Facility:[facility] Start: 02-09-2022 End: 02-09-2022 ambulatory MD Ely Lopez Work Phone: [facility] Work Phone: Start: 02-09-2022 End: 02-09-2022 Departed Referred MD Ely Lopez Work Phone: [facility] [place] Start: 12-16-2021 End: 12-17-[address] VIELKA GONZALEZ Facility:[facility] Start: 12-14-2021 End: 12-15-[address] VIELKA GONZALEZ Facility:[facility] Start: 02-09-2021 End: 02-09-[address] ELY LOPEZ Facility:[facility] Start: 01-22-2021 End: 01-22-2021 ambulatory Sarah Lau Other [facility] Other Start: 01-22-2021 Office outpatient vi sit 15 minutes Sarah Lau [facility] Start: 12-27-2020 End: 12-27-[address] ELY LOPEZ Facility:[facility] Procedures Date Procedure Procedure Detail Performing Clinician Start: 05-25-2023 Quick Strep (POC) Start: 02-24-[address] [facility] Start: 08-23-2021 Microscopic observat ion [Identifier] in Cervix by Cyto stain Brenda Dinh [facility] Work Phone: H/O: section Status pos t delivery MD Ely Lopez Work Phone: Streptococcus agalac tiae culture MD Ely Lopez Work Phone: Plan of Treatment Date Care Activity Detail Author Start: 08-23-2024 Screening for malignant neoplasm of cervix [facility] Start: 02-05-2024 End: 02-05-2024 Clinical Support 02/05/2024 3:00 PM EST Clinical Support [facility] [address] [place] [id number] Brenda Dinh [facility] [address] [place] [address] [facility] Start: 11-11-2023 Influenza vaccination Influenza Vaccine (#1) [facility] Start: 05-09-2023 End: 05-09-2023 Clinical Support 05/09/2023 1:00 PM EST Clinical Support [facility] [address] [place] [address] [facility] [address] [place] [address] [facility] Start: 04-18-2023 End: 04-18-2023 Clinical Support 04/18/2023 1:00 PM EST Clinical Support [facility] [address] [place] [id number] Brenda Dinh, [facility] [address] [place] [address] [facility] Start: 11-10-2022 Influenza vaccination Influenza Vaccine (#1) [facility] Start: 02-26-2022 [facility] Start: 02-24-2022 Hospital admission [facility] Start: 02-24-2022 [facility] Start: 06-25-2015 Screening for malignant neoplasm of cervix [facility] Start: 2006 Screening for malignant neoplasm of cervix Pap Smear [facility] Group B Streptococcu s Culture Group B Streptococcus Culture [facility] Patient Education Post- Di isela Instructions ([facility] [place]) [facility] Work Phone: Patient referral [facility] Work Phone: Streptococcus agalac tiae [Presence] in Unspecified specimen by Organism specific culture [facility] Work Phone: Immunizations Immunization Date Immunization Notes Care Provider Fa cility 04-25-2019 tetanus toxoid, reduced diphtheria toxoid, and acellular pertussis vaccine, adsorbed MD Ely Lopez Work Phone: [facility] 03-07-2017 influenza virus vaccine, unspecified formulation Brenda Dinh [facility] Work Phone: [facility] Healthcare Payers Date Payer Category Payer Self-pay [id number] 2020 [facility] [place] [id number] 2020-Present [phone] [address] [place] [address] Medicaid [id number] 2017 Private Health Insurance [facility] [id number] 2017 Medicaid [id number] 1985 Unknown [id number] 2.16.840.1.358022.3.579.2. 593 1985 Unknown [id number] 2.16840.1.693425.3.579.2. 593 1985 Unknown [id number] 2.16.840.1.441823.3.579.2. 593 1985 Unknown [id number] 2.16.840.1.271766.3.579.2. 593 1985 Unknown [id number] 2.16.840.1.564352.3.579.2. 1259 1985 Unknown [id number] 2.16.840.1.087413.3.579.2. 1259 1985 Unknown [id number] 2.16.840.1.868437.3.579.2. 1259 1985 Unknown [id number] 2.16.840.1.041515.3.579.2. 1259 1985 Unknown [id number] 2.16.840.1.000399.3.579.2. 1259 1985 Unknown [id number] 2.16.840.1.121174.3.579.2. 1259 1985 Unknown [id number] 2.16.840.1.281642.3.579.2. 1259 1959 Unknown [id number] 2.16.840.1.601917.19 Unknown Lamar BC/BS ANGELO [id number] Unknown [id number] 2.16.840.1.852713.3.579.2. 531 Unknown [id number] 2.16.840.1.455935.3.579.2. 531 Unknown [id number] 2.16.840.1.505721.3.579.2. 531 Unknown [facility] [id number] Social History Date Type Detail Facility Unknown if ever smoked [employer] Other Start: 04-23-2019 End: 05-25-2023 Tobacco smoking status NHIS Never smoked tobacco (finding) [facility] Start: 1985 Sex Assigned At Female F [facility] Start: 12-28-2022 End: 05-09-2023 Sex Assigned At [facility] [employer] Other Start: 12-28-2022 Alcohol intake Ex-drinker (finding) [facility] Start: 12-28-2022 End: 05-09-2023 History of Social function [facility] Start: 08-23-2022 Education [facility] Start: 12-28-2022 Alcohol Comment caffeine intak e: 1-2 cups per day [facility] Start: 1985 Sex Assigned At Not on file [facility] Start: 05-09-2023 Tobacco use and exposure Smokeless tobacco non-user [facility] Start: 05-09-2023 Alcoholic beverage intake Current drinker of alcohol (finding) [facility] Start: 01-29-2024 Sex Female (finding) [facility] Goals Date Patient Goal Desired Activity /State Functional Status Date Assessment Result Facility 02-26-2022 Functional status Patient at Baseline [facility] Work Phone: Mental Status Date Assessment Result Facility 02-26-2022 Cognitive function Cognitive Sta tus Patient at Baseline [facility] Work Phone: Clinical Notes 03-12-2013 to 04-13-2023 Note Date & Type Note Facility 04-13-2023 Evaluation note Encounter Date Diagnosis Assessment Notes Apr, Hypothyroidism, unspecified (ICD-10 - E03.9) Pt due for thyroid labs and also requests hormone levels for her fatigue. Labs ordered. will followup w results. Apr, Fatigue, unspecified type (ICD-10 - R53.83) as above [facility] Other [id number] Progress note Author Tim Higgins [facility] February 26, 2022 11:08am Note Date/Time February 26, 2022 11:08am [facility] [address] [place] [address] TOURS CAPTAIN Progress Note Signed Patient: Tabatha Go MR#: [id number] : 1985 Acct:[id number] Age/Sex: 36 / F Adm Date: 2 Loc: 3S Room: [address] [place] [address] Type: ADM IN Attending Dr: Vielka Gonzalez MD Copies to: ~ Date of Service: 02/26/2022 OB - PN: Subj Subjective Post Delivery Day #: Day 2 Patient comments: no complaints and pain well controlled [place] baby status: doing well and nursing well [place] feeding status: exclusively breast feeding OB - PN: Obj Exam Physical Exam Vital signs: Vital Signs - 8 hr 02/26/22 08:00 02/26/22 08:30 Temperature 97.9 F Pulse Rate [Apical] 77 Respiratory Rate 16 Blood Pressure [Left Arm] 125/84 02 Sat by Pulse Oximetry 96 Oxygen Delivery Method Room Air Room Air Constitutional Constitutional: no acute distress and cooperative HEENT Exam Head: Present normocephalic and atraumatic ENT: Present mucous membranes moist Respiratory Exam Respiratory: Present CTA bilaterally; Absent accessory muscle use Cardiovascular Exam Cardiovascular: Present RRR, S1 and S2; Absent murmur Abdominal Exam Abdominal: Present soft and wound (Intact and dry); Absent distended or guarding Fundus: Present firm (U-2) Extremities Exam Extremities: Present edema (Trace edema); Absent cyanosis, calf tenderness, palpable cord or Dejuan's sign Skin Exam Skin: Present intact, dry and warm; Absent rash Neurological Exam Neurological: Present alert, oriented X3 and normal speech Psychiatric Exam Psychiatric: Present normal affect Urinary Catheter Management Urethral (Valdez): Cath placed during this visit: no OB - PN: Obj Data Labs CBC & Chem 7: 02/25/22 06:34 Labs: 02/24/22 07:01: Antibody Identification Anti-c Assessment/Plan Plan day: 2 plan (if applicable): routine postop care, discharge home and follow up 6 weeks Documented By: Tim Higgins DO 02/26/22 1105 Signed By: <Electronically signed by Tim Higgins DO> 02/26/22 1108 [facility] Work Phone: 1(600) 164-427712-17-2022 Progress note Author SARAH Gan [facility] February 25, 2022 10:41am Note Date/Time February 25, 2022 10:41am [facility] [address] [place] [address] [employer]TAIN Progress Note Signed Patient: Tabatha Go MR#: [id number] : 1985 Acct:[id number] Age/Sex: 36 / F Adm Date: 2 Loc: Room: [address] [place] [address] Type: ADM IN Attending Dr: Vielka Gonzalez MD Copies to: ~ Date of Service: 02/25/2022 OB - PN: Subj Subjective Post Delivery Day #: Day 1 Patient comments: no complaints [place] baby status: doing well [place] feeding status: exclusively breast feeding OB - PN: Obj Exam Physical Exam Vital signs: Vital Signs - 8 hr 02/25/22 04:00 02/25/22 07:51 Temperature 97.5 F L 97.5 F L Pulse Rate [Apical] 80 82 Respiratory Rate 16 16 Blood Pressure [Right Arm] 108/70 126/82 02 Sat by Pulse Oximetry 97 99 Oxygen Delivery Method Room Air Room Air Constitutional Constitutional: no acute distress Respiratory Exam Respiratory: Absent respiratory distress, rhonchi, wheezes or crackles Cardiovascular Exam Cardiovascular: Present RRR; Absent murmur, gallop or rubs Abdominal Exam Abdominal: Present soft, normoactive bowel sounds and tenderness (near incision site) Fundus: Present firm Extremities Exam Extremities: Absent edema Skin Exam Skin: Present intact Neurological Exam Neurological: Present alert and oriented X3 Psychiatric Exam Psychiatric: Present normal affect Wound Management Examination: Present dressed and tenderness; Absent erythematous (no eythema appreciated around dressing) OB - PN: Obj Data Labs CBC & Chem 7: 02/25/22 06:34 Labs: 02/25/22 06:34: Uncorrected WBC Count 11.7 H, MCV 83.5, MCH 28.1, MCHC 33.6, RDW14.7, Plt Count 163, MPV 8.5, Neut % (Auto) 74.2, Lymph % (Auto) 18.6, [place] % (Auto) 6.9, Eos % (Auto) 0.2, Baso % (Auto) 0.1, Nucleat RBC Rel Count 0.2, Neut# (Auto) 8.7 H, Lymph # (Auto) 2.2, [place] # (Auto) 0.8, Eos # (Auto) 0.0, Baso # (Auto) 0.0 02/24/22 07:01: Antibody Screen Positive, Antibody Identification Anti-c, Pathology Review Sent to pathology 02/24/22 07:01: RPR w/Rflx to Titer Non reactive Assessment/Plan Plan day: 1 plan (if applicable): routine postop care Documented By: SARAH Chavarria 02/25/22 10 38 Signed By: <Electronically signed by SARAH Gan> 02/25/22 1041 [facility] Work Phone: [phone]) 767-792112-16-2022 [facility] general Narrative - Reported* Type Description Date Medical History asthma Medical History Hypothyroid Medical History Stomach Ulcers Medical History Colposcopies Medical History Cryotherapy for precancerous katie ls Surgical History [facility] 03/2013 Surgical History colposcopy Hospitalization History Appendicitis [facility] Other Evaluation noteNo assessment information available [facility] Work Phone: Evaluation note* Diagnosis Generalized anxiety disorder (CMS/HCC) Generalized anxiety disorder documented in this encounter [facility] Other Evaluation note* Diagnosis Onset Date Resolution Status Acute pharyngitis acute [facility] Work Phone: History general Narrative - [facility] Other Summary Purpose Family History Relationship Condition Age at Onset Recorded Date/T neymar grandparent Hypertension Unknown Kirsten's thyroiditis Unknown Heart disease Unknown Malignant neoplasm of kidney Unknown Relationship Condition Age at Onset Recorded Date/T neymar grandparent Hypertension Unknown Kirsten's thyroiditis Unknown Heart disease Unknown Malignant neoplasm of kidney Unknown grandparent Heart disease Unknown Diabetes mellitus Unknown grandparent Malignant neoplasm Unknown Advance Directives Advance Directive Response Recorded Date/ Time Advance Directives No April 02, 2019 7:42pm Advance Directive Response Recorded Date/ Time Advance Directives No April 02, 2019 8:42pm Chief Complaint and Reason for Visit Chief Complaint Z3A.36 Z36.85 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.36 Z36.85 z39.1 Chief Complaint Lab Work Dicussion Sore Throat Reason for Visit Acute pharyngitis Chief Complaint Admit Date CC Adult Risk Stratification January 242023 9:31am Med f/u January 29, 2024 3:27pm Additional Source Comments INFORMATION SOURCE (unrecogn ized section and content) DATE CREATED AUTHOR 12/19/2021 [employer] [facility] DATE CREATED AUTHOR AUTHOR'S ORGANIZ ATION 03/07/2022 [facility] DATE CREATED AUTHOR AUTHOR'S ORGANIZ ATION 12/30/2023 [facility] Care Teams (unrecognized sec tion and content) Team Status: Active Member Role Status Dates Ely Lopez MD Primary Care Provider Active Team Status: Active Member Role Status Dates Ely Lopez MD Primary Care Provide r, Attending Provider Active Start: January 25, 2024 Team Status: Inactive Member Role Status Dates Ely Lopez MD Primary Care Provide r, Attending Provider Active Start: January 29, 2024 End: January 29, 2024 Team Status: Inactive Member Role Status Dates Ely Lopez MD Primary Care Provider Active Vielka Gonzalez MD Attending Provider Active Team Status: Active Member Role Status Dates Ely Lopez MD Primary Care Provider Active Team Status: Inactive Member Role Status Dates Ely Lopez MD Primary Care Provider Active Vielka Gonzalez MD Admit Provider, Attending Provider A ctive Team Status: Inactive Member Role Status Dates Ely Lopez MD Primary Care Provider Active Coby Chavez MD Attending Provider Active Commercial Lender Relationship Specialty Start Date End Date Ely Lopez MD [address] [place] [id number] PCP - General Family Medicine 08/17/22 Commercial Lender Relationship Specialty Start Date End Date Ely Lopez MD [address] [place] [id number] PCP - General Family Medicine 08/17/22 Team Status: Inactive Member Role Status Dates Ely Lopez MD Attending Provider Active St art: April 13, 2023 End: April 13, 2023 Team Status: Active Member Role Status Dates Ely Lopez MD Primary Care Provide r, Attending Provider Active Start: April 19, 2023 Team Status: Inactive Member Role Status Dates Ely Lopez MD Primary Care Provider Active Start: May 25, 2023 End: May 25, 2023 Ene Cheney APRN [employer] SALES REPRESENTATIVE-C Attending Provider Act elsa Start: May 25, 2023 End: May 25, 2023 Commercial Lender Relationship Specialty Start Date End Date Ely Lopez MD [address] [place] [id number] PCP - General Family Medicine 08/17/22 Team Status: Active Member Role Status Dates Ely Lopez MD Primary Care Provide r, Attending Provider Active Start: January 25, 2024 Team Status: Inactive Member Role Status Dates Ely Lopez MD Primary Care Provide r, Attending Provider Active Start: January 29, 2024 End: January 29, 2024 Goals (unrecognized section and content) Goals may be documented in a n alternate sectionNo InformationNo InformationGoals may be documented in an alternate sectionGoals may be documented in an alternate section REASON FOR VISIT (unrecogniz ed section and content) lab work dicussionthyroid la bs. FOR RECORDS PERTAINING TO PATIENTS WHO ARE OR HAVE BEEN ENROLLED IN A CHEMICAL DEPENDENCY/SUBSTANCEABUSE PROGRAM, SOME INFORMATION MAY BE OMITTED. This clinical summary was aggregated from multiple sources. Caution should be exercised in using it in the provision of clinical care. This summary normalizes information from multiple sources, and as a consequence, information in this document may materially change the coding, format and clinical context of patient data. In addition, data may be omitted in some cases. CLINICAL DECISIONS SHOULD BE BASED ON THE PRIMARY CLINICAL RECORDS. [facility]. provides no warranty or guarantee of the accuracy or completeness of information in this document.
[2024-02-02 10:52] LABS: Free T4 0.78 ng/dL (0.76-1.46)
[2024-02-02 10:55] LABS: Thyroid Stimulating Hormone 0.027 uIU/mL (0.358-3.740)
[2024-02-04 15:10] LABS: Thyroglobulin Antibody <1.0 IU/mL (0.0-0.9); Thyroid Peroxidase (TPO) Ab <9 IU/mL (0-34)
== END 2024-02-02 09:33 | disposition home or self-care (01) ==
LOC: LAB 09:34
PROVIDERS: PCP Family Medicine; Visit Provider Family Medicine
DX: E03.9 Hypothyroidism, unspecified (principal)
CPT/HCPCS: 36415; 84439; 84443; 86376; 86800

== ENCOUNTER 2024-02-27 15:24 | Outpatient (RCR) | payer OTHER, SELFPAY | END 2024-03-11 19:00 | disposition home or self-care (01) | LOC: PT 15:24 | PROVIDERS: PCP Family Medicine; Visit Provider Family Medicine | DX: M54.2 Cervicalgia (principal); R51.9 Headache, unspecified | CPT/HCPCS: 20561; 97110; 97140; 97161 ==

== ENCOUNTER 2024-03-12 08:39 | Outpatient (RCR) | payer OTHER, SELFPAY | END 2024-03-24 07:33 | disposition home or self-care (01) | LOC: PT 08:39 | PROVIDERS: PCP Family Medicine; Visit Provider Family Medicine | DX: R51.9 Headache, unspecified (principal); M54.2 Cervicalgia | CPT/HCPCS: 20561; 97140 ==